=== PATIENT | male | born 1985 | race Caucasian/White ===

== ENCOUNTER 2020-03-27 20:11 | Emergency (ER) | payer MEDICAID, SELFPAY ==
[2020-03-27 20:20] VITALS: BP 145/93; PULSE 81; RESP 16; TEMP 36.7; O2SAT 100; BMI 25.7
--- NOTE | 2020-03-27 20:42 | HMH.EDEYEP ---
ED Disposition Clinical Impression: Eye foreign body Qualifiers: Encounter type: initial encounter Laterality: right Qualified Code(s): T15.91XA - Foreign body on external eye, part unspecified, right eye, initial encounter Disposition: Home, Self-Care Condition on Discharge: Good Instructions: DI for Eye Pain Additional Instructions: use ontiment as directed and call [facility] - [phone] in am Referrals: PCP,No [Primary Care Provider] - - Critical Care Critical Care Time: No Attestation: On 03/27/20, the high probability of a clinically significant, sudden or life threatening deterioration of the following system(s) required my full and direct attention, intervention and personal management. The time I documented below is in addition to time spent performing reported procedures but includes the following listed in this critical care notation. Medical Decision Making - Medical Records Medical records reviewed: Yes: I reviewed the patient's medical records. - Abdelrahman Inquiry Pt receiving controlled substance: No Vital Signs: 03/27/20 20:20 Temperature 98.1 F Temperature Source Oral Pulse Rate [Right] 81 Respiratory Rate 16 Blood Pressure [Right Arm] 145/93 H Blood Pressure Mean [Right Arm] 110 Blood Pressure Source [Right Arm] Automatic Cuff Blood Pressure Position [Right Arm] Sitting 02 Sat by Pulse Oximetry 100 Oxygen Delivery Method Room Air - Lab Data Lab results reviewed: Yes: I reviewed the patient's lab results. Eye Problem HPI - General Chief complaint: Eye Problems Stated complaint: object in L eye Time Seen by Provider: 03/27/20 20:30 Mode of Arrival: Ambulatory Source of Information: Patient, Medical Record Limitations: No Limitations Description of Symptoms (Recalled from ER Triage Doc. by RN): pt states about two hours ago his right eye became irritatted. he believes there is saw dust in it. - History of Present Illness HPI Narrative: possible fb rt eye - MD chief complaint: foreign body Onset (ago): hour(s) Duration: constant Location: right eye Eye Symptoms: foreign body sensation Place: home Severity: moderate Treatments Prior to Arrival: none - Related Data Patient tetanus UTD: No H History - Hepatitis A Screen Drug use history?: Yes High risk sexual behaviors?: No History of sexually transmitted infection?: No Currently employed?: No Childcare worker?: No Do you have indoor plumbing?: Yes Do you have electricity?: Yes Attestation statement:: This patient has been screened for Hepatitis A risk factors. I have reviewed the patient's past medical history: Yes ROS Obtained: Yes All systems reviewed & no additional complaints - Constitutional Constitutional: Denies fever(s) - Eyes Eyes: Reports as per HPI, Denies change in vision, Reports sensitivity to light - Cardiovascular Cardiovascular: Denies chest pain - Respiratory Respiratory: No pain with cough - Gastrointestinal Gastrointestingal: Denies: dysphagia - Genitourinary Male Genitourinary: Denies hematuria - Musculoskeletal Musculoskeletal: Denies joint swelling - Integumentary/Breasts Skin/Breast: Denies rash - Neurologic Neurologic: Denies seizure-like activity Physical Exam - General General appearance: alert, in no apparent distress - Head Head exam: normocephalic - Eye Eye exam: Present: PERRL, EOMI, other (neg fb seen and neg fluro stain ). Absent: scleral icterus - ENT ENT exam: Present: mucous membranes moist - Neck Neck exam: Present: trachea midline - Respiratory Respiratory exam: Absent: respiratory distress - Cardiovascular Cardiovascular exam: Present: regular rate - Abdominal Exam Abdominal exam: Present: soft - Extremities Exam Extremities exam: Present: full ROM - Neurological Exam Neurological exam: Present: alert, oriented X3, CN II-XII intact - Psychiatric Psychiatric exam: Present: normal affect - Skin Skin
[2020-03-27 21:03] VITALS: BP 158/79; PULSE 89; RESP 20; TEMP 36.8
== END 2020-03-27 21:06 | disposition home or self-care (01) ==
PROVIDERS: Emergency Provider Emergency Medicine
DX: T15.91XA Foreign body on external eye, part unspecified, right eye, initial encounter (principal); W45.8XXA Other foreign body or object entering through skin, initial encounter; Y92.9 Unspecified place or not applicable; Z23 Encounter for immunization
CPT/HCPCS: 90715; 99281

== ENCOUNTER → 2021-03-29 10:01 | Outpatient (CLI) | payer MEDICAID, SELFPAY | PROVIDERS: Visit Provider Nurse Practitioner | DX: Z20.822 Contact with and (suspected) exposure to COVID-19 (principal) | CPT/HCPCS: C9803; U0003; U0005 ==

== ENCOUNTER 2021-04-02 10:33 | Emergency (ER) | payer MEDICAID, SELFPAY ==
[2021-04-02 11:45] VITALS: BP 127/81; PULSE 72; RESP 19; TEMP 36.6; O2SAT 99; BMI 23.3
--- NOTE | 2021-04-02 12:24 | HMH.EDUTC ---
[facility] Dis[place] Clinical Impression: Sinusitis Qualifiers: Sinusitis location: unspecified location Chronicity: unspecified Qualified Code(s): J32.9 - Chronic sinusitis, unspecified Disposition: Home, Self-Care Condition on Discharge: Good Instructions: Sinusitis, Sinus Headache, DI for Sinusitis Additional Instructions: *Monitor Temp, Over the counter Motrin or Tylenol as directed/as needed Tylenol every 4 hours and Motrin every 6 hours (as long as your family doctor has told you that you can take it) for fever or pain. and straight to ER if unable to lower temp less than 101.0 after medication given *Warm salt water gargles may help to soothe the throat *Throat Lozenges *Warm fluids like tea with honey may help to soothe the throat *Sleep elevated *Humidifier/Vaporizer *Take antibiotics as prescribed Start Oral steriods tomorrow Follow up IMMEDIATELY for new or worsening symptoms or no Noticeable improvement over the next 48-72 hours. 911 for difficulty breathing or swallowing Prescriptions: Benzonatate [Benzonatate 100mg cap] 100 mg PO Q8HP PRN #15 cap PRN Reason: Cough Transmission Status: Received by [facility] methylPREDNISolone [Medrol 4mg tab] 4 mg PO DIRECTED #21 tab Transmission Status: Received by [facility] Azithromycin [Z-Elfego 250mg Tab] 250 mg PO DIRECTED #6 tab Transmission Status: Received by [facility] Referrals: Provider,Referral, MD [Primary Care Provider] - As needed Time of Disposition: 12:35 Medical Decision Making - Abdelrahman Inquiry Pt receiving controlled substance: No Abdelrahman was queried for this patient: No Vital Signs: 04/02/21 11:45 04/02/21 12:44 Temperature 97.8 F 97.8 F Temperature Source Oral Pulse Rate 72 Pulse Rate [Right Brachial] 72 Respiratory Rate 19 19 Blood Pressure 127/81 Blood Pressure [Right Arm] 127/81 Blood Pressure Mean [Right Arm] 96 Blood Pressure Source [Right Arm] Automatic Cuff Blood Pressure Position [Right Arm] Sitting 02 Sat by Pulse Oximetry 99 Oxygen Delivery Method Room Air Orders (Tests/Meds): ED MEDICATIONS Discontinued Medications Generic Name Dose Route Start Last Admin Trade Name Freq PRN Reason Stop Dose Admin Ketorolac Tromethamine 60 mg 04/02/21 12:30 04/02/21 12:43 Ketorolac 60mg/2ml Vial IM 04/02/21 12:31 60 mg ONCE ONE Administration Methylprednisolone Sodium Succinate 125 mg 04/02/21 12:30 04/02/21 12:43 Methylprednisolone Sod Succ 125mg Vial IM 04/02/21 12:31 125 mg ONCE ONE Administration Medical Decision Narrative: Patient states that he has taken SoluMedrol and Toradol in the past [facility] HPI - General Stated complaint: cough, congestion, h/a Time Seen by Provider: 04/02/21 12:24 Mode of Arrival: Ambulatory Source of Information: Patient Limitations: No Limitations Description of Symptoms (Recalled from Triage Doc. by RN): PATIENT C/O COUGH, RUNNY NOSE, HEADACHE X 1 WEEK. REPORTS HE WAS TESTED FOR COVID ON FRIDAY AND WAS NEGATIVE THEN HEENT Symptoms (Recalled from RN notes): Yes Resp Symptoms (Recalled from RN notes): Yes Skin Symptoms (Recalled from RN notes): No MS Symptoms (Recalled from RN notes): No Functional Status (Recalled from RN notes): WNL - History of Present Illness Provider Complaint: Patient states that he has been sick for over a week with sinus congestion and pressure States that it has continued to get worse and he was tested for COVID and it was negative States that today he was having a headache and he was still feeling bad today he came in - Related Data Previous Rx's Medication Instructions Recorded Azithromycin [Z-Elfego 250mg Tab] 250 mg PO DIRECTED #6 tab 04/02/21 Benzonatate [Benzonatate 100mg 100 mg PO Q8HP PRN #15 cap 04/02/21 cap] methylPREDNISolone [Medrol 4mg 4 mg PO DIRECTED #21 tab 04/02/21 tab] Allergies Allergy/AdvReac Type Severity Reaction Status Date / Time
[2021-04-02 12:44] VITALS: BP 127/81; PULSE 72; RESP 19; TEMP 36.6; O2SAT 99
== END 2021-04-02 12:57 | disposition home or self-care (01) ==
PROVIDERS: Emergency Provider Nurse Practitioner
DX: J32.9 Chronic sinusitis, unspecified (principal); F17.210 Nicotine dependence, cigarettes, uncomplicated
CPT/HCPCS: 96372; 99202; G0463

== ENCOUNTER → 2021-11-07 10:29 | Outpatient (CLI) | payer MEDICAID, SELFPAY ==
[2021-11-07 13:08] LABS: Basophils # 0.1 K/mm3 (0-0.2); Basophils % 0.7 % (0.1-2.0); Eosinophils # 0.2 K/mm3 (0.0-0.4); Eosinophils % 1.8 % (0.1-12.0); Hematocrit 45.9 % (42.0-52.0); Hemoglobin 14.5 g/dL (14.1-18.0); Lymphocytes # 2.7 K/mm3 (0.7-4.5); Lymphocytes % 26.9 % (10-50); Mean Corpuscular HGB Conc 31.6 g/dL (31.8-35.4); Mean Corpuscular Volume 91.7 fl (80-94); Mean Platelet Volume 9.4 fl (7.4-10.4); Monocytes # 0.4 K/mm3 (0.1-1.0); Monocytes % 4.3 % (1.7-9.3); Neutrophils # 6.8 K/mm3 (1.8-7.8); Neutrophils % 66.4 % (37.0-80.0); Platelet Count 235 K/mm3 (142-424); Red Blood Count 5.01 M/mm3 (4.60-6.20); Red Cell Distribution Width 12.3 % (11.5-17.5); White Blood Count 10.2 K/mm3 (4.8-10.8)
[2021-11-07 13:43] LABS: Alanine Aminotransferase 52 U/L (12-78); Albumin Level 4.3 g/dl (3.5-5.0); Alkaline Phosphatase 96 U/L (38-126); Anion Gap 11.8 mEq/L (5-15); Aspartate Amino Transferase 40 U/L (17-59); Blood Urea Nitrogen 13 mg/dl (9-20); Calcium 9.3 mg/dl (8.4-10.2); Carbon Dioxide 26 mmol/L (22.0-30.0); Chloride 106 mmol/L (98-107); Estimated Glomerular Filt Rate 128 ml/min (>60); GFR (African American) 154 ML/MIN (>60); Glucose 74 mg/dl (74-100); Potassium 4.8 mmoL/L (3.5-5.1); Sodium 139 mmol/L (136-145); Total Protein,Serum 6.7 g/dl (6.3-8.2)
[2021-11-07 13:44] LABS: Bilirubin,Total < 0.1 mg/dl (0.2-1.3)
[2021-11-07 14:30] LABS: Bilirubin,Direct 0.3 mg/dl (0.0-0.4)
[2021-11-08 07:13] LABS: HIV Screen 4th Generation wRfx Non Reactive (Non Reactive)
[2021-11-16 22:28] LABS: Hep A Ab, IgM Negative; Hepatitis B Surface Antigen Negative; Hepatitis C Antibody >11.0
== END ==
PROVIDERS: Visit Provider Family Medicine Addiction Medicine
DX: F11.20 Opioid dependence, uncomplicated (principal); R94.5 Abnormal results of liver function studies; Z11.4 Encounter for screening for human immunodeficiency virus [HIV]
CPT/HCPCS: 36415; 80048; 80074; 80076; 85025; 86703; G0432

== ENCOUNTER 2021-12-10 10:58 | Emergency (ER) | payer MEDICAID, SELFPAY ==
[2021-12-10 13:00] VITALS: BP 116/61; PULSE 63; RESP 18; TEMP 36.6; O2SAT 97; BMI 22.1
--- NOTE | 2021-12-10 13:24 | EXP.UTC ---
Discharge Plan Disposition Patient Disposition: Home, Self-Care Condition: Good Prescriptions Prescriptions: New ondansetron 4 mg tablet,disintegrating 4 mg PO Q8H PRN (Reason: nausea and vomiting) 4 Days Qty: 12 0RF Referrals Follow up/Referrals: Provider,Referral, MD [Primary Care Provider] - See instructions Activity Restrictions/Add. Instructions Additional Instructions/Restrictions: Drink extra fluids with and between meals. If you have difficulty drinking, try very small amounts of water or suck on ice chips. ? Avoid fruit juices, as these do not replace minerals and can actually increase diarrhea. ? Children and adults can use sports drinks to replenish electrolytes. Younger children and infants should use products formulated for children, like oral rehydration solutions. ? Eat food in small amounts and let your stomach recover. ? Get lots of rest. You may feel tired or weak. ? No greasy or fried foods for the next 24-48 hours BRAT diet Bananas Rice Apples and [address] ? Make sure to drink plenty of liquids ? Return if needed ? Straight to ER if any life threatening symptoms ? Zofran as prescribed ? Follow up with family doctor in the next 48-72 hours if no improvement or any worsening of symptoms Clinical Impressions Clinical Impression: Nausea & vomiting Stand Alone Forms Stand Alone Forms: Work/School Release Discharge ED Provider: Sierra Solorio [facility] General Stated complaint: Nausea Mode of Arrival: Ambulatory Source of Information: Patient Limitations: No Limitations Time Seen by Provider: 12/10/21 13:24 Description of Symptoms (Recalled from Triage Doc. by RN): PATIENT C/O NAUSEA AND VOMITING X 2 DAYS. NEEDING A WORK NOTE HEENT Symptoms (Recalled from RN notes): No Resp Symptoms (Recalled from RN notes): No Skin Symptoms (Recalled from RN notes): No MS Symptoms (Recalled from RN notes): No Functional Status (Recalled from RN notes): WNL History of Present Illness Provider Complaint: Patient state that he has been having N/V for the last couple of days States that he has been drinking ok but not keeping much down when he eats States that today he was still having nausea and vomiting this morning so he came in to get checked and get something for the Nausea Related Data Previous Rx's Medication Instructions Recorded ondansetron 4 mg disintegrating 4 mg PO Q8H PRN nausea and 12/10/21 tablet vomiting 4 days #12 tabs Allergies Allergy/AdvReac Type Severity Reaction Status Date / Time methylphenidate Allergy Verified 03/27/20 20:44 [From Ritalin] Worker's Comp Is this a Worker's Comp case?: No [facility] Social History (Updated 12/10/21 @ 13:08 by Belkys Peraza RN) Smoking Status: Current every day smoker alcohol intake: never current occupational status: employed Travel in the last 8 weeks: None ROS Obtained: Yes All systems reviewed & no additional complaints except as documented and Yes Systems reviewed as appropriate & no additional complaints except as documented ENT Ears, Nose, Mouth, and Throat: Reports system reviewed and no additional complaints, except as documented and Reports as per HPI Cardiovascular Cardiovascular: Reports system reviewed and no additional complaints, except as documented and Reports as per HPI Respiratory Respiratory: Reports system reviewed and no additional complaints, except as documented and Reports as per HPI Gastrointestinal Gastrointestingal: Reports system reviewed and no additional complaints, except as documented, nausea and vomiting; Denies heartburn Genitourinary Male Genitourinary: Reports system reviewed and no additional complaints, except as documented and Reports as per HPI Musculoskeletal Musculoskeletal: Reports system reviewed and no additional complaints, except as documented and Reports as per HPI Physical Exam General General appe
[2021-12-10 13:41] VITALS: BP 116/61; PULSE 63; RESP 18; TEMP 36.6; O2SAT 97
== END 2021-12-10 13:44 | disposition home or self-care (01) ==
PROVIDERS: Emergency Provider Nurse Practitioner
DX: R11.2 Nausea with vomiting, unspecified (principal)
CPT/HCPCS: 99212; G0463

== ENCOUNTER 2022-02-13 19:11 | Emergency (ER) | payer MEDICAID, SELFPAY ==
[2022-02-13 19:13] VITALS: BP 117/66; PULSE 62; RESP 16; TEMP 36.7; O2SAT 97; BMI 23.7
--- NOTE | 2022-02-13 20:42 | CT_ITS ---
PROCEDURE INFORMATION: Exam: CT Abdomen And Pelvis With Contrast Exam date and time: 02/13/2022 8:43 PM Age: 36 years old Clinical indication: Abdominal pain; Localized; Other: Right groin; Additional info: Hernia right upper groin TECHNIQUE: Imaging protocol: Computed tomography of the abdomen and pelvis with contrast. Radiation optimization: All CT scans at this facility use at least one of these dose optimization techniques: automated exposure control; mA and/or kV adjustment per patient size (includes targeted exams where dose is matched to clinical indication); or iterative reconstruction. Contrast material: ISOVUE; Contrast volume: 75 ml; Contrast route: IV; COMPARISON: No relevant prior studies available. FINDINGS: Liver: Normal configuration. Homogeneous parenchyma. Gallbladder and bile ducts: Postprandial gallbladder is contracted. Pancreas: Normal. No ductal dilation. Spleen: Normal. No splenomegaly. Adrenal glands: Normal configuration. Kidneys and ureters: Kidneys enhance symmetrically and demonstrate no evidence of mass, calculus, obstruction, or inflammation. Stomach and bowel: Unremarkable. No obstruction. No mural thickening. Appendix: Normal appendix is in a retrocecal position. Intraperitoneal space: No free air. No significant fluid collection. Vasculature: Normal caliber arterial structures. Lymph nodes: No enlarged lymph nodes. Urinary bladder: Unremarkable as visualized. Reproductive: Physiologic appearance for age. Bones/joints: No fracture or destructive lesion. Soft tissues: Intact abdominal wall. In particular, there is no evidence of hernia. IMPRESSION: No acute abnormality identified to explain patient's inguinal pain. In particular, there is no evidence of hernia or urolithiasis. Normal appendix is confirmed.
[2022-02-13 20:45] LABS: Microscopic, Urine URINE MICROSCOPIC (MICROSCOPIC)
[2022-02-13 20:56] LABS: Appearance,Urine CLOUDY (Clear); Bilirubin,Urine Negative (Negative); Blood, Urine Negative (Negative); Color,Urine YELLOW (Yellow); Glucose,Urine (UA) Negative (Negative); Ketones,Urine Negative (Negative); Leukocyte Esterase,Urine Negative (Negative); Nitrate,Urine Negative (Negative); Protein,Urine Negative (Negative)
[2022-02-13 21:00] VITALS: BP 124/72; PULSE 60; O2SAT 99
[2022-02-13 21:00] LABS: Bacteria,Urine Trace /lpf
[2022-02-13 21:00] LABS: Chloride 100 mmol/L (98-107); Potassium 3.8 mmoL/L (3.5-5.1); Sodium 139 mmol/L (136-145)
[2022-02-13 21:02] LABS: Basophils # 0.1 K/mm3 (0-0.2); Basophils % 1.1 % (0.1-2.0); Eosinophils # 0.2 K/mm3 (0.0-0.4); Eosinophils % 2.3 % (0.1-12.0); Hematocrit 41.8 % (42.0-52.0); Hemoglobin 14.3 g/dL (14.1-18.0); Lymphocytes % 39.4 % (10-50); Mean Corpuscular HGB Conc 34.1 g/dL (31.8-35.4); Mean Corpuscular Hemoglobin 29.9 pg (27.0-31.2); Mean Corpuscular Volume 87.7 fl (80-94); Mean Platelet Volume 8.4 fl (7.4-10.4); Monocytes # 0.5 K/mm3 (0.1-1.0); Monocytes % 4.8 % (1.7-9.3); Neutrophils # 5.4 K/mm3 (1.8-7.8); Neutrophils % 52.4 % (37.0-80.0); Platelet Count 237 K/mm3 (142-424); Red Blood Count 4.77 M/mm3 (4.60-6.20); Red Cell Distribution Width 12.2 % (11.5-17.5); White Blood Count 10.2 K/mm3 (4.8-10.8)
[2022-02-13 21:03] LABS: Alanine Aminotransferase 48 U/L (12-78); Albumin Level 4.4 g/dl (3.5-5.0); Albumin/Globulin Ratio 1.8 (1.1-1.8); Alkaline Phosphatase 90 U/L (38-126); Anion Gap 12.8 mEq/L (5-15); Aspartate Amino Transferase 42 U/L (17-59); Bilirubin,Total 0.3 mg/dl (0.2-1.3); Blood Urea Nitrogen 16 mg/dl (9-20); Calcium 9.5 mg/dl (8.4-10.2); Carbon Dioxide 30 mmol/L (22.0-30.0); Creatinine Clearance Estimated 168 mL/min (50-200); Estimated Glomerular Filt Rate 128 ml/min (>60); GFR (African American) 154 ML/MIN (>60); Globulin 2.5 g/dL (1.3-3.2); Glucose 93 mg/dl (74-100); Total Protein,Serum 6.9 g/dl (6.3-8.2)
--- NOTE | 2022-02-13 21:12 | HMH.EDABDPAI ---
Discharge Plan Disposition Patient Disposition: Home, Self-Care Chief Complaint: Abdominal Pain Prescriptions Prescriptions: No Action ondansetron 4 mg tablet,disintegrating 4 mg PO Q8H PRN (Reason: nausea and vomiting) 4 Days Qty: 12 0RF Referrals Follow up/Referrals: Provider,MD Charity [Primary Care Provider] - See instructions Robert Jules MD [Staff Physician] - See instructions Mina Stanley MD [Staff Physician] - See instructions Clinical Impressions Clinical Impression: Inguinal pain Instructions Patient Instructions: DI for Groin Strain Discharge ED Provider: Lito Ventura Abdominal Pain HPI General Chief Complaint: Abdominal Pain Stated Complaint: PAIN IN ADM Time Seen by Provider: 02/13/22 21:12 Mode of Arrival: Ambulatory Source of Information: Patient and Medical Record Limitations: No Limitations Description of Symptoms (Recalled from ER Triage Doc. by RN): pt has a hx of hernias an repairs. 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 the early pt has pain in the right upper groin area History of Present Illness HPI narrative: lifting about 1 week ago with pain rt inguinal area with hx of prev hernia repair complaint: abdominal pain Onset (ago): day(s) Consistency: intermittent Location: RLQ Severity: moderate Associated symptoms: denies other symptoms Related Data Previous Rx's Medication Instructions Recorded ondansetron 4 mg disintegrating 4 mg PO Q8H PRN nausea and 12/10/21 tablet vomiting 4 days #12 tabs Allergies Allergy/AdvReac Type Severity Reaction Status Date / Time methylphenidate Allergy Verified 03/27/20 20:44 [From Ritalin] [facility] Social History (Updated 12/10/21 @ 13:08 by Belkys Peraza RN) Smoking Status: Current every day smoker alcohol intake: never current occupational status: employed Travel in the last 8 weeks: None ROS Obtained: Yes All systems reviewed & no additional complaints except as documented Physical Exam General General appearance: alert Head Head exam: normocephalic Eye Eye exam: Present PERRL and EOMI ENT ENT exam: Present mucous membranes moist Neck Neck exam: Present trachea midline Respiratory Respiratory exam: Absent respiratory distress Cardiovascular Cardiovascular exam: Present regular rate Abdominal Exam Abdominal exam: Present soft, tenderness and hernia Abdominal tenderness: Present RLQ and moderate exam: Absent scrotal swelling Extremities Exam Extremities exam: Present normal inspection Neurological Exam Neurological exam: Present alert, oriented X3 and CN II-XII intact Psychiatric Psychiatric exam: Present normal affect Skin Skin exam: Absent rash Lymphatic Lymphatic Findings: no adenopathy Medical Decision Making Medical Records Medical records reviewed: Yes I reviewed the patient's medical records. Abdelrahman Inquiry Pt receiving controlled substance: No Vital Signs: 02/13/22 19:13 Temperature 98.1 F Temperature Source Oral Pulse Rate [Left] 62 Respiratory Rate 16 Blood Pressure [Right Arm] 117/66 Blood Pressure Mean [Right Arm] 83 02 Sat by Pulse Oximetry 97 Oxygen Delivery Method Room Air Lab Data Lab results reviewed: Yes I reviewed the patient's lab results. Lab Results 02/13/22 20:00: Urine Color Yellow, Urine Appearance Cloudy, Urine pH 7.0, Ur Specific [place] 1.020, Urine Protein Negative, Urine Glucose (UA) Negative, Urine Ketones Negative, Urine Blood Negative, Urine Nitrate Negative, Urine Bilirubin Negative, Urine Urobilinogen 1.0, Ur Leukocyte Esterase Negative, Urine RBC None, Urine WBC 3-5, Ur Squamous Epith Cells 3-5, Urine Bacteria Trace 02/13/22 20:24: WBC 10.2, RBC 4.77, Hgb 14.3, Hct 41.8 L, MCV 87.7, MCH 29.9, MCHC 34.1, RDW 12.2, Plt Count 237, MPV 8.4, Neut % (Auto) 52.4, Lymph % (Auto) 39.4, [place] % (Auto) 4.8, Eos % (Auto) 2.3, Baso % (Auto) 1.1, Keith
--- NOTE | 2022-02-13 21:39 | PC.NURSE ---
Dr. Ventura at speaking with pt.
[2022-02-13 21:43] VITALS: BP 119/75; PULSE 61; RESP 16; TEMP 36.7; O2SAT 97
== END 2022-02-13 21:44 | disposition home or self-care (01) ==
PROVIDERS: Emergency Provider Emergency Medicine
DX: R10.31 Right lower quadrant pain (principal); R11.2 Nausea with vomiting, unspecified; Z79.899 Other long term (current) drug therapy; Z88.8 Allergy status to other drugs, medicaments and biological substances
CPT/HCPCS: 74177; 80053; 81001; 85025; 99285; Q9967

== ENCOUNTER → 2022-06-20 14:36 | Outpatient (CLI) | payer MEDICAID, SELFPAY ==
--- NOTE | 2022-06-20 14:40 | XR_ITS ---
FINAL REPORT CLINICAL HISTORY: finger injury injury to 3rd digit FINDINGS: LEFT FINGER 3 views of the left 3rd digit were obtained. There is no acute fracture or dislocation. The joint spaces are intact. There is no soft tissue abnormality. IMPRESSION: No acute bony abnormality. Reviewed, Interpreted and Dictated by Robert García III, MD Transcribed by Amanda Murray Authenticated and . [facility]
--- NOTE | 2022-06-20 14:40 | XR_ITS ---
FINAL REPORT CLINICAL HISTORY: hand injury, swelling FINDINGS: LEFT HAND Three views demonstrate no acute fracture. There is no dislocation. The visualized joint spaces are normally aligned. The joint spaces are preserved. There is a 4 mm foreign body along the medial aspect of the hand. IMPRESSION: No acute bony abnormality. Reviewed, Interpreted and Dictated by Robert García III, MD Transcribed by Amanda Murray Authenticated and . [facility]
== END ==
PROVIDERS: Visit Provider Student in an Organized Health Care Education/Training Program
DX: S69.92XA Unspecified injury of left wrist, hand and finger(s), initial encounter (principal); M79.642 Pain in left hand
CPT/HCPCS: 73130; 73140

== ENCOUNTER 2022-10-23 20:42 | Emergency (ER) | payer MEDICAID, SELFPAY ==
[2022-10-23 20:43] VITALS: BP 118/65; PULSE 68; RESP 16; TEMP 36.6; O2SAT 99; BMI 19.8
--- NOTE | 2022-10-23 21:09 | HMH.EDEYEP ---
Discharge Plan Disposition Patient Disposition: Home, Self-Care Chief Complaint: Eye Problems Prescriptions Prescriptions: No Action buprenorphine-naloxone [Suboxone] 4-1 mg film 1 film buccal Q24H Rx Instructions: place 1 strip/tab under (each) side of tongue cephalexin 500 mg capsule 500 mg PO QID Qty: 20 0RF sulfamethoxazole-trimethoprim 800-160 mg tablet 1 tab PO BID Qty: 14 0RF mupirocin 2 % ointment 1 applic topical BID Qty: 15 0RF Referrals Follow up/Referrals: Provider,MD Charity [Primary Care Provider] - See instructions Clinical Impressions Clinical Impression: Ultraviolet conjunctivitis Discharge ED Provider: Rodolfo Guzmán Eye Problem HPI General Chief complaint: Eye Problems Stated complaint: BL eyes burning Time Seen by Provider: 10/23/22 20:48 Mode of Arrival: Wheelchair Source of Information: Patient Limitations: No Limitations Description of Symptoms (Recalled from ER Triage Doc. 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 pt c/o bliateral eye burning that started this eveing. pt denies any vision changes. History of Present Illness HPI Narrative: 37-year-old white male presents with bilateral pain. 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 He has not been doing any grinding no dust no sawdust in the that he just welding. Patient is in a Suboxone clinic and has allergy to Ritalin. Related Data Home Medications Medication Instructions Recorded Confirmed buprenorphine 4 mg-naloxone 1 mg 1 film buccal Q24H 06/20/22 06/21/22 sublingual film (Suboxone) Previous Rx's Medication Instructions Recorded cephalexin 500 mg capsule 500 mg PO QID #20 caps 06/20/22 mupirocin 2 % topical ointment 1 applic topical BID #15 grams 06/20/22 sulfamethoxazole 800 1 tab PO BID #14 tabs 06/20/22 mg-trimethoprim 160 mg tablet Allergies Allergy/AdvReac Type Severity Reaction Status Date / Time methylphenidate Allergy Verified 06/21/22 12:19 [From Ritalin] [facility] Disclaimer: The information contained in this section may have been updated after the patient was seen, as this information can be updated by other users. Social History Smoking Status: Current every day smoker alcohol intake: never substance use type: former substance user current occupational status: employed Travel in the last 8 weeks: None ROS Obtained: Yes Systems reviewed as appropriate & no additional complaints except as documented Physical Exam General General appearance: alert and in distress (Patient has his eyes tightly closed and these have to be pried open to get anesthetic drops in the eyes.) Eye Eye exam: Present conjunctival redness and other Expanded Eye Exam Eyelids: bilateral: erythema Pupils: Bilateral: regular, round and reactive Sclera/Conjunctival: bilateral: injection Posterior chamber: bilateral: deferred Comment: The patient's bilateral eye pain and accompanying blepharospasm has prevented visual acuity. He never got to the point where he could keep his eyes open without them being pried open. Even with multiple antibiotic drops he continues to keep his eyes closed. Neck Neck exam: Present normal inspection Respiratory Respiratory exam: Present normal lung sounds bilaterally; Absent respiratory distress Cardiovascular Cardiovascular exam: Present regular rate and normal rhythm Abdominal Exam Abdominal exam: Present soft; Absent tenderness Extremities Exam Extremities exam: Present normal inspection Neurological Exam Neurological exam: Present alert, oriented X3 and CN II-XII intact Medical Decision Making Medical Records MR Comment: 37-year-old white male presents with severe bilateral eye pain. The right seems to be worse in the left he was anesthetized and fluorescein staining was performed after ir
--- NOTE | 2022-10-23 21:12 | PC.NURSE ---
Pt unable to open eyes long enough to complete visual acuity test. Dr dang
[2022-10-23 21:20] VITALS: BP 121/74; PULSE 71; RESP 16; TEMP 36.6; O2SAT 99
== END 2022-10-23 21:25 | disposition home or self-care (01) ==
PROVIDERS: Emergency Provider Emergency Medicine
DX: H16.139 Photokeratitis, unspecified eye (principal); F17.200 Nicotine dependence, unspecified, uncomplicated
CPT/HCPCS: 99283; 99284

== ENCOUNTER 2022-12-06 11:55 | Emergency (ER) | payer MEDICAID, SELFPAY ==
[2022-12-06 11:56] VITALS: BP 111/76; PULSE 93; RESP 16; TEMP 36.6; O2SAT 98; BMI 21.7
--- NOTE | 2022-12-06 12:15 | HMH.EDGENADL ---
Discharge Plan Disposition Patient Disposition: Home, Self-Care Prescriptions Prescriptions: New ondansetron 4 mg tablet,disintegrating 4 mg PO Q6H PRN (Reason: nausea and vomiting) 5 Days Qty: 20 0RF No Action buprenorphine-naloxone [Suboxone] 4-1 mg film 1 film buccal Q24H Rx Instructions: place 1 strip/tab under (each) side of tongue cephalexin 500 mg capsule 500 mg PO QID Qty: 20 0RF sulfamethoxazole-trimethoprim 800-160 mg tablet 1 tab PO BID Qty: 14 0RF mupirocin 2 % ointment 1 applic topical BID Qty: 15 0RF Activity Restrictions/Add. Instructions Additional Instructions/Restrictions: Return to the emergency department with any inability to keep fluids down or significant worsening of your abdominal pain. Clinical Impressions Clinical Impression: Nausea & vomiting Instructions Patient Instructions: DI for Acute Abdominal Pain Discharge ED Provider: Nomi Stephens General Adult HPI General Chief complaint: Abdominal Pain Stated complaint: stomach pain,vomiting,headache Time Seen by Provider: 12/06/22 12:08 History of Present Illness HPI narrative: Patient is a 37-year-old male here with 4 days of nausea vomiting. This has been nonbloody nonbilious no diarrhea associated with it. No significant abdominal tenderness but does have some abdominal crampy symptoms on the left side. No constipation. Is having normal bowel movements. No fevers or chills. No sick contacts that he is aware of. Denies any drug use or significant alcohol or tobacco use. Denies any other significant medical problems. States he tried some [id number] medications and has been able to get his nausea under control at home. Related Data Home Medications Medication Instructions Recorded Confirmed buprenorphine 4 mg-naloxone 1 mg 1 film buccal Q24H 06/20/22 06/21/22 sublingual film (Suboxone) Previous Rx's Medication Instructions Recorded cephalexin 500 mg capsule 500 mg PO QID #20 caps 06/20/22 mupirocin 2 % topical ointment 1 applic topical BID #15 grams 06/20/22 sulfamethoxazole 800 1 tab PO BID #14 tabs 06/20/22 mg-trimethoprim 160 mg tablet ondansetron 4 mg disintegrating 4 mg PO Q6H PRN nausea and 12/06/22 tablet vomiting 5 days #20 tabs Allergies Allergy/AdvReac Type Severity Reaction Status Date / Time methylphenidate Allergy Verified 06/21/22 12:19 [From Ritalin] [facility] Disclaimer: The information contained in this section may have been updated after the patient was seen, as this information can be updated by other users. Social History Smoking Status: Current every day smoker alcohol intake: never substance use type: former substance user current occupational status: employed Travel in the last 8 weeks: None ROS Obtained: Yes All systems reviewed & no additional complaints except as documented Physical Exam General General appearance: alert Respiratory Respiratory exam: Present normal lung sounds bilaterally; Absent respiratory distress Cardiovascular Cardiovascular exam: Present regular rate; Absent tachycardia Abdominal Exam Abdominal exam: Present soft; Absent distention, tenderness, guarding or rebound Neurological Exam Neurological exam: Present alert and oriented X3 Medical Decision Making Abdelrahman Inquiry Pt receiving controlled substance: No Vital Signs: 12/06/22 11:56 Temperature 97.9 F Temperature Source Oral Pulse Rate [Right] 93 H Respiratory Rate 16 Blood Pressure [Right Arm] 111/76 Blood Pressure Mean [Right Arm] 87 Blood Pressure Source [Right Arm] Automatic Cuff 02 Sat by Pulse Oximetry 98 Oxygen Delivery Method Room Air Lab Data Lab results reviewed: Yes I reviewed the patient's lab results. Lab Results 12/06/22 12:10: WBC 8.3, RBC 5.23, Hgb 15.2, Hct 45.9, MCV 87.8, MCH 29.0, MCHC 33.0, RDW 12.3, Plt Count 206, MPV 9.1, Neut % (Auto)
[2022-12-06 12:34] LABS: Basophils # 0.1 K/mm3 (0-0.2); Basophils % 0.8 % (0.1-2.0); Eosinophils # 0.3 K/mm3 (0.0-0.4); Hematocrit 45.9 % (42.0-52.0); Hemoglobin 15.2 g/dL (14.1-18.0); Lymphocytes # 2.7 K/mm3 (0.7-4.5); Lymphocytes % 32.1 % (10-50); Mean Corpuscular Volume 87.8 fl (80-94); Mean Platelet Volume 9.1 fl (7.4-10.4); Monocytes # 0.5 K/mm3 (0.1-1.0); Monocytes % 5.7 % (1.7-9.3); Neutrophils # 4.8 K/mm3 (1.8-7.8); Neutrophils % 58.4 % (37.0-80.0); Platelet Count 206 K/mm3 (142-424); Red Blood Count 5.23 M/mm3 (4.60-6.20); Red Cell Distribution Width 12.3 % (11.5-17.5); White Blood Count 8.3 K/mm3 (4.8-10.8)
[2022-12-06 12:44] LABS: Chloride 105 mmol/L (98-107); Potassium 4.5 mmoL/L (3.5-5.1); Sodium 140 mmol/L (136-145)
[2022-12-06 12:47] LABS: Alanine Aminotransferase 70 U/L (12-78); Albumin Level 4.2 g/dl (3.5-5.0); Albumin/Globulin Ratio 1.4 (1.1-1.8); Alkaline Phosphatase 96 U/L (38-126); Anion Gap 13.5 mEq/L (5-15); Aspartate Amino Transferase 47 U/L (17-59); Bilirubin,Total 0.3 mg/dl (0.2-1.3); Blood Urea Nitrogen 11 mg/dl (9-20); Calcium 9.4 mg/dl (8.4-10.2); Carbon Dioxide 26 mmol/L (22.0-30.0); Creatinine Clearance Estimated 173 mL/min (50-200); Estimated Glomerular Filt Rate 152 ml/min (>60); GFR (African American) 183 ML/MIN (>60); Glucose 80 mg/dl (74-100); Lipase 38 U/L (23-300); Total Protein,Serum 7.2 g/dl (6.3-8.2)
[2022-12-06 13:45] VITALS: BP 106/62; PULSE 55; RESP 17; TEMP 36.7; O2SAT 100
== END 2022-12-06 13:45 | disposition home or self-care (01) ==
PROVIDERS: Emergency Provider Student in an Organized Health Care Education/Training Program
DX: R11.2 Nausea with vomiting, unspecified (principal); F17.210 Nicotine dependence, cigarettes, uncomplicated
CPT/HCPCS: 80053; 83690; 85025; 96361; 96374; 99284; J2405

== ENCOUNTER 2023-06-08 11:15 | Emergency (ER) | payer MEDICAID, SELFPAY ==
[2023-06-08 11:19] VITALS: BP 145/95; PULSE 70; RESP 18; TEMP 36.6; O2SAT 98; BMI 21.7
--- NOTE | 2023-06-08 11:37 | ED_ITS ---
Discharge Plan Disposition Patient Disposition: Home, Self-Care Condition: Good Prescriptions Prescriptions: New sulfamethoxazole-trimethoprim [Bactrim DS] 800-160 mg tablet 1 tab PO BID 7 Days Qty: 14 0RF cephalexin 500 mg capsule 500 mg PO QID 7 Days Qty: 28 0RF No Action buprenorphine-naloxone [Suboxone] 4-1 mg film 1 film buccal Q24H Rx Instructions: place 1 strip/tab under (each) side of tongue cephalexin 500 mg capsule 500 mg PO QID Qty: 20 0RF sulfamethoxazole-trimethoprim 800-160 mg tablet 1 tab PO BID Qty: 14 0RF mupirocin 2 % ointment 1 applic topical BID Qty: 15 0RF ondansetron 4 mg tablet,disintegrating 4 mg PO Q6H PRN (Reason: nausea and vomiting) 5 Days Qty: 20 0RF Referrals Follow up/Referrals: Provider,Referral, MD [Primary Care Provider] - See instructions Activity Restrictions/Add. Instructions Additional Instructions/Restrictions: Take Bactrim and Keflex as prescribed and return for any new or worsening symptoms including but not limited to worsening redness despite taking antibiotics, redness tracking down the finger, fevers or any new concerns arise. Clinical Impressions Clinical Impression: Cellulitis of hand, Abscess of finger of left hand Instructions Patient Instructions: DI for Skin Abscess Discharge ED Provider: Kat Benson General Adult HPI General Chief complaint: Skin/Abscess/Foreign Body Stated complaint: AO splinter in left ring finger Time Seen by Provider: 06/08/23 11:18 Mode of Arrival: Ambulatory Source of Information: Patient Limitations: No Limitations Description of Symptoms (Recalled from ER Triage Doc. by RN): left hand ring finger History of Present Illness HPI narrative: Patient is a 37-year-old male with no significant past medical history presenting with left ring finger injury. Patient states around 2 weeks ago he thinks that there was a splinter or foreign body that got cut on his finger as he does work with some wood, for the past 4 days he has noticed some worsening redness and was concern for possible infection and therefore presented for further evaluation. He denies any fevers or chills, nausea or vomiting. Denies any other illness or injury but does note that it seemed to drain some pus this morning. Related Data Home Medications Medication Instructions Recorded Confirmed buprenorphine 4 mg-naloxone 1 mg 1 film buccal Q24H 06/20/22 06/21/22 sublingual film (Suboxone) Previous Rx's Medication Instructions Recorded cephalexin 500 mg capsule 500 mg PO QID #20 caps 06/20/22 mupirocin 2 % topical ointment 1 applic topical BID #15 grams 06/20/22 sulfamethoxazole 800 1 tab PO BID #14 tabs 06/20/22 mg-trimethoprim 160 mg tablet ondansetron 4 mg disintegrating 4 mg PO Q6H PRN nausea and 12/06/22 tablet vomiting 5 days #20 tabs cephalexin 500 mg capsule 500 mg PO QID 7 days #28 caps 06/08/23 sulfamethoxazole 800 1 tab PO BID 7 days #14 tabs 06/08/23 mg-trimethoprim 160 mg tablet (Bactrim DS) Allergies Allergy/AdvReac Type Severity Reaction Status Date / Time methylphenidate Allergy Verified 06/21/22 12:19 [From Ritalin] [facility] Disclaimer: The information contained in this section may have been updated after the patient was seen, as this information can be updated by other users. Social History Smoking Status: Current every day smoker alcohol intake: never substance use type: former substance user current occupational status: employed Travel in the last 8 weeks: None ROS Obtained: Yes Systems reviewed as appropriate & no additional complaints except as documented Physical Exam General General appearance: alert and in no apparent distress Chest Chest inspection: Present normal inspection and symmetric chest wall rise Respiratory Respiratory exam: Absent respiratory distress or accessory muscle use Cardiovascular Cardiovascular exam: Present regular rate and normal rhythm Extremities Exam Extremities exam: Present other (Area of erythema over dorsal left ring finger over the distal phalanx with small area of eschar over the middle of the erythematous area, slight fluctuance, does not involve the nailbed, capillary refill less than 2 seconds and sensation intact distal extremity and able to range of motion without di) Neurological Exam Neurological exam: Present alert and oriented X3 Skin Skin exam: Present warm and dry Medical Decision Making Medical Records Medical records reviewed: Yes I reviewed the patient's medical records. Abdelrahman Inquiry Pt receiving controlled substance: No Vital Signs: 06/08/23 11:19 Temperature 97.9 F Temperature Source Oral Pulse Rate [Right Radial] 70 Respiratory Rate 18 Blood Pressure [Right Arm] 145/95 H Blood Pressure Mean [Right Arm] 111 02 Sat by Pulse Oximetry 98 Oxygen Delivery Method Room Air Medical Decision Narrative: Patient is a 37-year-old male with no significant past medical history presenting with concern for infection to dorsal aspect of left ring finger with injury 2 weeks ago and erythema noted over the past 4 days. He is notably up-to-date on tetanus within the past 5 years. He does have an area of erythema with an area of eschar over the middle aspect likely where he noted pus draining from the wound this morning, able to range of motion the finger without difficulty, neurovascularly intact capillary refill less than 2 seconds distal extremity. I did ultrasound of the finger at bedside using water back method and there is perhaps a small area of fluid that can be drained from the wound which was drained per procedural documentation. Discussed with patient prescribing Bactrim and Keflex for the wound to which patient is agreeable. Discussed return precautions to which she is also agreeable. Discharged in stable condition. Procedures Abscess I/D Site: hand (Dorsal left ring finger) Side (if applicable): left Technique: incised with #11 blade Amount of fluid expressed (mL): 0.5 Packing used?: none Complications: other (Patient tolerated the procedure well) Critical Care Critical Care Time Critical Care Time: No
[2023-06-08 11:52] VITALS: BP 135/81; PULSE 66; RESP 18; TEMP 36.6; O2SAT 98
== END 2023-06-08 11:52 | disposition home or self-care (01) ==
PROVIDERS: Emergency Provider Emergency Medicine
DX: L02.512 Cutaneous abscess of left hand (principal); L03.012 Cellulitis of left finger; S60.455 Superficial foreign body of left ring finger; W45.8XXS Other foreign body or object entering through skin, sequela
CPT/HCPCS: 10060; 99284

== ENCOUNTER 2023-10-10 09:59 | Emergency (ER) | payer MEDICAID, SELFPAY ==
[2023-10-10 10:00] VITALS: BP 140/110; PULSE 83; RESP 16; TEMP 36.8; O2SAT 98; BMI 22.4
[2023-10-10 10:05] VITALS: PULSE 76; O2SAT 97
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
[2023-10-10 10:29] VITALS: BP 116/77; PULSE 74; O2SAT 96
[2023-10-10] MEDS: ACETAMINOPHEN 500MG TAB 1000 MG PO (10:29)
[2023-10-10] MEDS: KETOROLAC 30MG/ML VIAL 15 MG IV (10:30)
[2023-10-10] MEDS: LACTATED RINGERS 1000ML 1,000 ML 999 ML IV (10:30)
[2023-10-10 10:34] LABS: Chloride 106 mmol/L (98-107); Potassium 4.1 mmoL/L (3.5-5.1); Sodium 141 mmol/L (136-145)
[2023-10-10 10:37] LABS: Alanine Aminotransferase 49 U/L (12-78); Albumin Level 4.7 g/dl (3.5-5.0); Albumin/Globulin Ratio 1.6 (1.1-1.8); Alkaline Phosphatase 89 U/L (38-126); Anion Gap 11.1 mEq/L (5-15); Aspartate Amino Transferase 39 U/L (17-59); Bilirubin,Total 0.4 mg/dl (0.2-1.3); Blood Urea Nitrogen 12 mg/dl (9-20); Carbon Dioxide 28 mmol/L (22.0-30.0); Creatinine Clearance Estimated 156 mL/min (50-200); Estimated Glomerular Filt Rate 126 ml/min (>60); GFR (African American) 153 ML/MIN (>60); Globulin 2.9 g/dL (1.3-3.2); Total Protein,Serum 7.6 g/dl (6.3-8.2)
[2023-10-10 10:38] LABS: Calcium 9.4 mg/dl (8.4-10.2); Glucose 97 mg/dl (74-100)
--- NOTE | 2023-10-10 10:40 | PC.NURSE ---
UA sent to lab
[2023-10-10 10:42] LABS: Microscopic, Urine URINE MICROSCOPIC (MICROSCOPIC)
[2023-10-10 11:11] LABS: Appearance,Urine CLEAR (Clear); Bilirubin,Urine Negative (Negative); Blood, Urine Negative (Negative); Color,Urine YELLOW (Yellow); Glucose,Urine (UA) Negative (Negative); Ketones,Urine Negative (Negative); Leukocyte Esterase,Urine Negative (Negative); Nitrate,Urine Negative (Negative); PH,Urine 6.5 (5.0-8.5); Protein,Urine Negative (Negative); Urobilinogen,Urine 0.2 EU/dl (0.2)
[2023-10-10 11:42] LABS: Basophils # 0.1 K/mm3 (0-0.2); Basophils % 0.6 % (0.1-2.0); Eosinophils # 0.2 K/mm3 (0.0-0.4); Eosinophils % 1.9 % (0.1-12.0); Hematocrit 47.6 % (42.0-52.0); Hemoglobin 16.2 g/dL (14.1-18.0); Lymphocytes # 2.5 K/mm3 (0.7-4.5); Lymphocytes % 27.5 % (10-50); Mean Corpuscular Hemoglobin 30.3 pg (27.0-31.2); Mean Corpuscular Volume 89.1 fl (80-94); Mean Platelet Volume 8.7 fl (7.4-10.4); Monocytes # 0.4 K/mm3 (0.1-1.0); Monocytes % 4.8 % (1.7-9.3); Neutrophils % 65.3 % (37.0-80.0); Platelet Count 184 K/mm3 (142-424); Red Blood Count 5.34 M/mm3 (4.60-6.20); Red Cell Distribution Width 12.9 % (11.5-17.5); White Blood Count 9.2 K/mm3 (4.8-10.8)
[2023-10-10 11:49] VITALS: BP 128/78; PULSE 84; RESP 18; TEMP 36.8; O2SAT 98
[2023-10-10 12:13] LABS: Bacteria,Urine Trace /lpf; Squamous Epithelial Cell,Urine Occasional #/hpf (0-5); WBC,Urine Occasional #/hpf (0-3)
[2023-10-13 18:09] LABS: Neisseria gonorrhoeae, NAA Negative (Negative)
== END 2023-10-10 11:50 | disposition home or self-care (01) ==
PROVIDERS: Emergency Provider Emergency Medicine
DX: R10.31 Right lower quadrant pain (principal); R30.0 Dysuria; M54.59 Other low back pain; F17.210 Nicotine dependence, cigarettes, uncomplicated; W55.32XA Struck by other hoof stock, initial encounter
CPT/HCPCS: 80053; 81001; 85025; 87491; 87591; 96361; 96374; 99284; J1885; J7120

== ENCOUNTER 2023-10-29 15:19 | Emergency (ER) | payer MEDICAID, SELFPAY ==
[2023-10-29 15:45] VITALS: BP 126/60; PULSE 60; RESP 20; TEMP 36.7; O2SAT 97; BMI 21.7
[2023-10-29 15:58] LABS: UTC Strep Screen (Rapid) Negative (Negative)
--- NOTE | 2023-10-29 16:06 | ED_ITS ---
Discharge Plan Disposition Patient Disposition: Home, Self-Care Condition: Good Prescriptions Prescriptions: New vektmjyuxxajngd-qsjaupzqa-WT [Bromfed DM] 2-30-10 mg/5 mL Syrup 5 ml PO Q6H PRN (Reason: Cough) Qty: 240 0RF amoxicillin-pot clavulanate 875-125 mg Tablet 1 tab PO Q12H Qty: 20 0RF No Action buprenorphine-naloxone [Suboxone] 4-1 mg film 1 film buccal Q24H Rx Instructions: place 1 strip/tab under (each) side of tongue Referrals Follow up/Referrals: Provider,Referral, MD [Primary Care Provider] - See instructions Activity Restrictions/Add. Instructions Additional Instructions/Restrictions: Drink plenty of fluids. Take tylenol or ibuprofen for pain or fever. Take the medications as directed. Follow up with your regular doctor. GO TO THE ER FOR ANY WORSENING SYMPTOMS Clinical Impressions Clinical Impression: Pharyngitis, Acute viral syndrome Instructions Patient Instructions: Sore Throat, DI for Pharyngitis/Tonsillopharyngitis -- Adult Discharge ED Provider: Cresencio Leary [facility] General Stated complaint: sore throat Mode of Arrival: Ambulatory Source of Information: Patient Limitations: No Limitations Time Seen by Provider: 10/29/23 16:06 Description of Symptoms (Recalled from Triage Doc. by RN): PATIENT C/O SORE THROAT WITH KNOT UNDER LEFT JAW X 4-5 DAYS HEENT Symptoms (Recalled from RN notes): No Resp Symptoms (Recalled from RN notes): No Skin Symptoms (Recalled from RN notes): No MS Symptoms (Recalled from RN notes): No Functional Status (Recalled from RN notes): WNL Related Data Home Medications Medication Instructions Recorded Confirmed buprenorphine 4 mg-naloxone 1 mg 1 film buccal Q24H 06/20/22 10/29/23 sublingual film (Suboxone) Previous Rx's Medication Instructions Recorded amoxicillin 875 mg-potassium 1 tab PO Q12H #20 tabs 10/29/23 clavulanate 125 mg tablet ntrwzxjtuambepa-jhasfcvlaaykudn-UD 5 ml PO Q6H PRN Cough #240 mL 10/29/23 2 mg-30 mg-10 mg/5 mL oral syrup (Bromfed DM) Allergies Allergy/AdvReac Type Severity Reaction Status Date / Time methylphenidate Allergy Verified 06/21/22 12:19 [From Ritalin] Worker's Comp Is this a Worker's Comp case?: No [facility] Disclaimer: The information contained in this section may have been updated after the patient was seen, as this information can be updated by other users. Medical History (Updated 10/29/23 @ 16:27 by Cresencio Leary APRN) Migraine Surgical History (Updated 10/29/23 @ 15:53 by Belkys Peraza RN) Hx of hernia repair History of tonsillectomy Social History Smoking Status: Current every day smoker alcohol intake: never substance use type: former substance user current occupational status: employed Travel in the last 8 weeks: None ROS Obtained: Yes All systems reviewed & no additional complaints except as documented Constitutional Constitutional: Reports chills and Reports fever(s) Eyes Eyes: Denies eye discharge ENT Ears, Nose, Mouth, and Throat: Reports as per HPI Cardiovascular Cardiovascular: Denies chest pain Respiratory Respiratory: Denies chest congestion and Reports cough Gastrointestinal Gastrointestingal: Reports nausea; Denies abdominal pain, constipation, cramping, diarrhea or vomiting Musculoskeletal Musculoskeletal: Denies arthralgias Integumentary/Breasts Skin/Breast: Denies rash Neurologic Neurologic: Denies paresthesias Physical Exam General General appearance: alert and in no apparent distress Head Head exam: atraumatic, normocephalic and normal inspection Eye Eye exam: Present normal appearance, PERRL and EOMI ENT ENT exam: Present mucous membranes moist and normal external ear exam Expanded ENT Exam TM/Canal exam: Bilateral TM: erythema and bulging Nose exam: Absent sinus tenderness Mouth exam: Present normal external inspection; Absent drooling Teeth exam: Present normal inspection Throat exam: Present tonsillar erythema, tonsillomegaly and tonsillar exudate Neck Neck exam: Present normal inspection, full ROM and trachea midline; Absent tenderness, meningismus or lymphadenopathy Chest Chest inspection: Present normal inspection and symmetric chest wall rise; Absent tenderness Respiratory Respiratory exam: Present normal lung sounds bilaterally; Absent respiratory distress, wheezes or stridor Cardiovascular Cardiovascular exam: Present regular rate and normal rhythm; Absent systolic murmur or diastolic murmur Abdominal Exam Abdominal exam: Present soft and normal bowel sounds; Absent distention, tenderness, guarding, rebound or rigidity Extremities Exam Extremities exam: Present normal inspection and normal capillary refill; Absent calf tenderness Back Exam Back exam: Present normal inspection and full ROM; Absent tenderness, CVA tenderness (R) or CVA tenderness (L) Neurological Exam Neurological exam: Present alert, oriented X3 and CN II-XII intact Psychiatric Psychiatric exam: Present normal affect and normal mood Skin Skin exam: Present warm, dry, intact and normal color Medical Decision Making Medical Records Medical records reviewed: No I reviewed the patient's medical records. Abdelrahman Inquiry Pt receiving controlled substance: No Vital Signs: 10/29/23 15:45 Temperature 98.0 F Temperature Source Oral Pulse Rate [Left Brachial] 60 Respiratory Rate 20 Blood Pressure [Left Arm] 126/60 Blood Pressure Mean [Left Arm] 82 Blood Pressure Source [Left Arm] Automatic Cuff Blood Pressure Position [Left Arm] Sitting 02 Sat by Pulse Oximetry 97 Oxygen Delivery Method Room Air Lab Data Lab results reviewed: Yes I reviewed the patient's lab results. Lab Results 10/29/23 15:53: Strep Scn Rapid Clinic Negative Orders (Tests/Meds): ORDERS Category Date Time Status Strep Screen Confirmation Stat Micro 10/29/23 15:53 Received
[2023-10-29 16:28] VITALS: BP 126/60; PULSE 60; RESP 20; TEMP 36.7; O2SAT 97
== END 2023-10-29 16:34 | disposition home or self-care (01) ==
PROVIDERS: Emergency Provider Nurse Practitioner Family
DX: J02.9 Acute pharyngitis, unspecified (principal)
CPT/HCPCS: 87635; 87880; 99212; 99214; G0463

== ENCOUNTER 2024-01-01 11:08 | Emergency (ER) | payer MEDICAID, SELFPAY ==
[2024-01-01 11:09] VITALS: BP 152/78; PULSE 61; RESP 16; TEMP 36.7; O2SAT 98; BMI 23.7
--- NOTE | 2024-01-01 11:10 | HMH.EDGENADL ---
Discharge Plan Disposition Patient Disposition: Home, Self-Care Condition: Good Prescriptions Prescriptions: New omeprazole 20 mg capsule,delayed release(DR/EC) 20 mg PO DAILY 14 Days Qty: 14 0RF ondansetron 4 mg tablet,disintegrating 4 mg PO Q8H PRN (Reason: nausea and vomiting) 5 Days Qty: 14 0RF Probiotic 3 billion cell capsule 3,000 mmu cells PO DAILY 30 Days Qty: 30 0RF Rx Instructions: administer with a meal No Action buprenorphine-naloxone [Suboxone] 4-1 mg film 1 film buccal Q24H Rx Instructions: place 1 strip/tab under (each) side of tongue vitnwkaojthikfr-twhisotmk-EM [Bromfed DM] 2-30-10 mg/5 mL Syrup 5 ml PO Q6H PRN (Reason: Cough) Qty: 240 0RF amoxicillin-pot clavulanate 875-125 mg Tablet 1 tab PO Q12H Qty: 20 0RF Referrals Follow up/Referrals: Provider,Referral, MD [Primary Care Provider] - See instructions Activity Restrictions/Add. Instructions Additional Instructions/Restrictions: As we discussed, given that your symptoms have improved with nausea medication, as well as reassuring labs and physical exam, you are stable for discharge at this time. I have prescribed nausea medication, a medication to help with stomach irritation, and a probiotic. Please return with any new or worsening symptoms. Clinical Impressions Clinical Impression: Nausea & vomiting Stand Alone Forms Stand Alone Forms: Work/School Release Instructions Patient Instructions: DI for Diarrhea and Traveler's Diarrhea -- Adult, DI for Diarrhea and Traveler's Diarrhea -- Child, DI for Nausea -- Adult, DI for Nausea -- Child Print Language Print Language: Occitan Discharge ED Provider: Magen Qureshi General Adult HPI General Chief complaint: Nausea/Vomiting/Diarrhea Stated complaint: vomitting after eating Time Seen by Provider: 01/01/24 11:10 History of Present Illness HPI narrative: The patient presents with a chief complaint of vomiting every time he eats, which started about a week ago. He reports being able to keep some liquids down but experiences issues with any type of meal. He denies having any fevers or difficulty urinating. He has not noticed any blood in his vomit or bowel movements and denies any significant abdominal pain. Bowel movements have been regular, and the patient does not feel constipated. The patient mentions a history of being hit by a cow in the hip area approximately a week ago, which knocked him down. He is unsure if this incident is related to his current symptoms, as he does not recall any abdominal pain at the time of the injury. The patient has no known medical conditions and takes no daily medications. The patient reports that the last time he vomited was around 6 AM this morning. He denies being around anyone sick or with similar symptoms. The vomiting has been occurring every time he eats and has not been getting better. The patient confirms he can keep some liquids down if he doesn't need them. He had his last bowel movement earlier today. Please note that above description of symptoms, in this electronic medical record under categorization of recalled from ER triage doctor by RN are reflective of an initial nursing assessment, however, is not reflective of my full history and physical exam that was personally taken and clarified. Consequentially, this preceding description of symptoms, which may include the patient's categorized chief complaint in the EMR, do not reflect my personal clinical impression, and the ultimate description of history of present illness and patient stated complaints should be deferred to this section of the note. Unless stated otherwise or congruent with this section of the note, additional signs, symptoms, or incongruence should be interpreted as inaccurate with my clinical impression. Related Data Home Medications ?Medication ?Instructions ?Recorded ?Confirmed buprenorphine 4 mg-naloxone 1 mg 1 film buccal Q24H 06/20/22 10/29/23 sublingual film (Suboxone) Previous Rx's ?Medication ?Instructions ?Recorded amoxicillin 875 mg-potassium 1 tab PO Q12H #20 tabs 10/29/23 clavulanate 125 mg tablet eadfmotkagkdbun-vfsbzgfoeonucvd-VQ 5 ml PO Q6H PRN Cough #240 mL 10/29/23 2 mg-30 mg-10 mg/5 mL oral syrup (Bromfed DM) lactobacillus combination no.4 3 3,000 mmu cells PO DAILY 30 days 01/01/24 billion cell capsule (Probiotic) #30 caps omeprazole 20 mg capsule,delayed 20 mg PO DAILY 14 days #14 caps 01/01/24 release ondansetron 4 mg disintegrating 4 mg PO Q8H PRN nausea and 01/01/24 tablet vomiting 5 days #14 tabs Allergies Allergy/AdvReac Type Severity Reaction Status Date / Time methylphenidate Allergy Verified 06/21/22 12:19 [From Ritalin] [facility] Disclaimer: The information contained in this section may have been updated after the patient was seen, as this information can be updated by other users. Medical History (Updated 01/01/24 @ 13:10 by Magen Qureshi MD) Migraine Surgical History (Updated 10/29/23 @ 15:53 by Belkys Peraza RN) Hx of hernia repair History of tonsillectomy Social History Smoking Status: Current every day smoker alcohol intake: never substance use type: former substance user current occupational status: employed Travel in the last 8 weeks: None ROS Obtained: Yes other As per HPI Physical Exam General General appearance: alert and in no apparent distress Head Head exam: atraumatic and normocephalic Eye Eye exam: Present normal appearance Neck Neck exam: Present normal inspection Chest Chest inspection: Present normal inspection and symmetric chest wall rise Respiratory Respiratory exam: Present normal lung sounds bilaterally; Absent respiratory distress Cardiovascular Cardiovascular exam: Present regular rate and normal rhythm Abdominal Exam Abdominal exam: Present soft; Absent tenderness, guarding or rebound Neurological Exam Neurological exam: Present alert and oriented X3 Psychiatric Psychiatric exam: Present normal affect and normal mood Skin Skin exam: Present warm and dry Medical Decision Making Medical Records Medical records reviewed: Yes I reviewed the patient's medical records. Screening: Per USPSTF and CDC recommendations, given the prevalence of disease in our region, it is our hospital?s policy to screen for HIV and viral Hepatitis for all patients aged 18 and over and those with ongoing risk factors. Abdelrahman Inquiry Pt receiving controlled substance: No Vital Signs: 01/01/24 11:09 01/01/24 13:20 Temperature 98.0 F 98.1 F Temperature Source Oral Oral Pulse Rate 81 Pulse Rate [Right] 61 Respiratory Rate 16 16 Blood Pressure 141/67 H Blood Pressure [Right Arm] 152/78 H Blood Pressure Mean [Right Arm] 102 02 Sat by Pulse Oximetry 98 Oxygen Delivery Method Room Air Lab Data Lab Results 01/01/24 11:17: WBC 10.3, RBC 5.34, Hgb 16.0, Hct 48.8, MCV 91.4, MCH 29.9, MCHC 32.8, RDW 13.0, Plt Count 206, MPV 9.1, Neut % (Auto) 65.6, Lymph % (Auto) 24.3, [place] % (Auto) 4.0, Eos % (Auto) 5.0, Baso % (Auto) 1.0, Neut # (Auto) 6.7, Lymph # (Auto) 2.5, [place] # (Auto) 0.4, Eos # (Auto) 0.5 H, Baso # (Auto) 0.1, Sodium 138, Potassium 4.1, Chloride 107, Carbon Dioxide 27, Anion Gap 8.1, BUN 14, Creatinine 0.70, Estimated Creat Clear 165, Estimated GFR 126, Est GFR ( Amer) 153, Glucose 132 H, Calcium 9.5, Total Bilirubin 0.6, AST 39, ALT 49, Alkaline Phosphatase 81, Total Protein 7.3, Albumin 4.6, Globulin 2.7, Albumin/Globulin Ratio 1.7, Lipase 36, HIV 1&2 Antibody Rapid Nonreactive 01/01/24 11:17 01/01/24 11:17 Orders (Tests/Meds): ED MEDICATIONS Discontinued Medications Generic Name Dose Route Start Last Admin Trade Name Freq PRN Reason Stop Dose Admin Belladonna Alkaloids 60 ml 01/01/24 11:10 01/01/24 11:21 Belladonna Alkaloids 60 Ml Ml PO 01/01/24 11:11 60 ml ONCE ONE Administration Lactated Ringer's 1,000 mls @ 999 mls/hr 01/01/24 11:10 01/01/24 11:21 Lactated Ringer's 1000 Ml Bag IV 01/01/24 12:10 999 mls/hr .Q1H1M ONE Administration Ketorolac Tromethamine 15 mg 01/01/24 11:10 01/01/24 11:22 Ketorolac 30mg/Ml Vial IV 01/01/24 11:11 15 mg ONCE ONE Administration Ondansetron HCl 4 mg 01/01/24 11:10 01/01/24 11:22 Ondansetron 4mg/2ml Vial IV 01/01/24 11:11 4 mg ONCE ONE Administration ORDERS Category Date Time Status CBC w/Auto Diff [Complete Blood Count Auto Diff] Stat Lab 01/01/24 11:17 Completed CMP [Comprehensive Metabolic Panel] Stat Lab 01/01/24 11:17 Completed HIV (1&2) Antibody Rapid Stat Lab 01/01/24 11:17 Completed Hep C Ab with Reflex to RNA Stat Lab 01/01/24 11:17 Received Lipase Stat Lab 01/01/24 11:17 Completed Medical Decision Narrative: Patient with history and exam per above presenting for evaluation of nausea, vomiting Diagnoses considered include pancreatitis, PUD, low clinical suspicion and insufficient clinical evidence to warrant further evaluation beyond history and physical exam at this time for acute surgical pathology. ED workup and treatment included: ED MEDICATIONS Discontinued Medications Generic Name Dose Route Start Last Admin Trade Name Freq PRN Reason Stop Dose Admin Belladonna Alkaloids 60 ml 01/01/24 11:10 01/01/24 11:21 Belladonna Alkaloids 60 Ml Ml PO 01/01/24 11:11 60 ml ONCE ONE Administration Lactated Ringer's 1,000 mls @ 999 mls/hr 01/01/24 11:10 01/01/24 11:21 Lactated Ringer's 1000 Ml Bag IV 01/01/24 12:10 999 mls/hr .Q1H1M ONE Administration Ketorolac Tromethamine 15 mg 01/01/24 11:10 01/01/24 11:22 Ketorolac 30mg/Ml Vial IV 01/01/24 11:11 15 mg ONCE ONE Administration Ondansetron HCl 4 mg 01/01/24 11:10 01/01/24 11:22 Ondansetron 4mg/2ml Vial IV 01/01/24 11:11 4 mg ONCE ONE Administration ORDERS Category Date Time Status CBC w/Auto Diff [Complete Blood Count Auto Diff] Stat Lab 01/01/24 11:17 Completed CMP [Comprehensive Metabolic Panel] Stat Lab 01/01/24 11:17 Completed HIV (1&2) Antibody Rapid Stat Lab 01/01/24 11:17 Completed Hep C Ab with Reflex to RNA Stat Lab 01/01/24 11:17 Received Lipase Stat Lab 01/01/24 11:17 Completed Labs were independently interpreted by me, significant for no acute findings My clinical impression at this time is most consistent with likely enteritis, patient reports improvement of symptoms upon repeat evaluation, was able to tolerate p.o. solids without difficulty. He is comfortable with discharge at this time. I discussed my clinical impression with patient and answered all questions. At this time, the evidence for any other entities in the differential is insufficient to warrant any further testing or ED observation. This was explained to the patient. The patient was advised that persistent or worsening symptoms require further evaluation. Critical Care Critical Care Time Critical Care Time: No
[2024-01-01] MEDS: LACTATED RINGERS 1000ML 1,000 ML 999 ML IV (11:21)
[2024-01-01] MEDS: BELLADONNA ALKALOIDS 60 ML ML PO (11:21)
[2024-01-01] MEDS: ONDANSETRON 4MG/2ML VIAL 4 MG IV (11:22)
[2024-01-01] MEDS: KETOROLAC 30MG/ML VIAL 15 MG IV (11:22)
[2024-01-01 11:30] LABS: Basophils # 0.1 K/mm3 (0-0.2); Eosinophils # 0.5 K/mm3 (0.0-0.4); Hematocrit 48.8 % (42.0-52.0); Lymphocytes # 2.5 K/mm3 (0.7-4.5); Lymphocytes % 24.3 % (10-50); Mean Corpuscular HGB Conc 32.8 g/dL (31.8-35.4); Mean Corpuscular Hemoglobin 29.9 pg (27.0-31.2); Mean Corpuscular Volume 91.4 fl (80-94); Mean Platelet Volume 9.1 fl (7.4-10.4); Monocytes # 0.4 K/mm3 (0.1-1.0); Neutrophils # 6.7 K/mm3 (1.8-7.8); Neutrophils % 65.6 % (37.0-80.0); Platelet Count 206 K/mm3 (142-424); Red Blood Count 5.34 M/mm3 (4.60-6.20); White Blood Count 10.3 K/mm3 (4.8-10.8)
[2024-01-01 11:38] LABS: Albumin Level 4.6 g/dl (3.5-5.0); Chloride 107 mmol/L (98-107)
[2024-01-01 11:39] LABS: Potassium 4.1 mmoL/L (3.5-5.1); Sodium 138 mmol/L (136-145)
[2024-01-01 11:41] LABS: Alanine Aminotransferase 49 U/L (12-78); Aspartate Amino Transferase 39 U/L (17-59); Blood Urea Nitrogen 14 mg/dl (9-20); Creatinine Clearance Estimated 165 mL/min (50-200); Estimated Glomerular Filt Rate 126 ml/min (>60); GFR (African American) 153 ML/MIN (>60)
[2024-01-01 11:42] LABS: Albumin/Globulin Ratio 1.7 (1.1-1.8); Alkaline Phosphatase 81 U/L (38-126); Anion Gap 8.1 mEq/L (5-15); Bilirubin,Total 0.6 mg/dl (0.2-1.3); Calcium 9.5 mg/dl (8.4-10.2); Carbon Dioxide 27 mmol/L (22.0-30.0); Globulin 2.7 g/dL (1.3-3.2); Glucose 132 mg/dl (74-100); Lipase 36 U/L (23-300); Total Protein,Serum 7.3 g/dl (6.3-8.2)
--- NOTE | 2024-01-01 12:00 | PC.NURSE ---
pt given crackers and peanut butter, and water
[2024-01-01 12:40] LABS: HIV (1&2) Antibody Rapid NONREACTIVE (NONREACTIVE)
--- NOTE | 2024-01-01 13:04 | PC.NURSE ---
DR NO AT BEDSIDE TO REEVALUATE PT
[2024-01-01 13:20] VITALS: BP 141/67; PULSE 81; RESP 16; TEMP 36.7; O2SAT 97
== END 2024-01-01 13:21 | disposition home or self-care (01) ==
PROVIDERS: Emergency Provider Emergency Medicine
DX: R11.2 Nausea with vomiting, unspecified (principal)
CPT/HCPCS: 80053; 83690; 85025; 87389; 96361; 96374; 96375; 99284; J1885; J2405; J7120

== ENCOUNTER 2024-01-19 13:18 | Outpatient (CLI) | payer MEDICAID, SELFPAY | END 2024-01-19 23:59 | disposition home or self-care (01) | LOC: LAB 13:21 | PROVIDERS: PCP Nurse Practitioner; Visit Provider Nurse Practitioner | DX: Z02.9 Encounter for administrative examinations, unspecified (principal) ==

== ENCOUNTER 2024-09-29 15:07 | Emergency (ER) | payer MEDICAID, SELFPAY ==
[2024-09-29] VITALS (11 sets, daily range): BP systolic 119–151; BP diastolic 73–92; PULSE 57–84; RESP 13–20; TEMP 36.6; O2SAT 95–98; BMI 23.7
--- NOTE | 2024-09-29 15:12 | ECG_ITS ---
APPROVED REPORT Exam: Resting ECG HR:79 bpm ECG Measurements Heart Rate 79 AXES MO 132 P 9 QRSd 93 QRS 80 QT 346 T -3 QTc 380 Conclusion Sinus rhythm T wave inversions in 3 and aVF without reciprocal elevation Electronically signed by : DEMETRIUS LOPEZ, 10/05/2024 07:44:47
--- OUTSIDE RECORDS SUMMARY | 2024-09-29 15:24 | XMS_ITS | Clinical Summary ---
Author Organization [facility] Address [address] [phone] Phone Care Team Providers Care Casing Fluid Tender Name Role Phone Yaritza Alcantar APRN Primary Care Physician + Conditions or Problems Problem Name Problem Code Onset Date Status Entry Date Provider Comment Standard Description Annotate Body mass index (BMI) 20.0-20.9; adult Z68.20 (ICD-10-CM) Active Yaritza Alcantar APRN Body mass index [BMI] 20.0-20.9, adult Abrasion, finger, infected [id number] (SNOMED CT) Active Yaritza Alcantar APRN Abrasion and/or friction burn of finger, infected Finger pain, left [id number] (SNOMED CT) Active Yaritza Alcantar APRN Pain in finger Medications Medication Instructions Start Date Stop Date Generic Name NDC Provider MUPIROCIN 2 % OINT APPLY TO AFFECTED AREA 2 TIMES DAILY 9 MUPIROCIN [id number] Yaritza Alcantar APRN KEFLEX 500 MG ORAL CAPSULE TAKE 1 CAPSULE BY MOUTH 3 TIMES A DAY FOR 10 DAYS 9 CEPHALEXIN [id number] Yaritza Alcantar APRN SUBOXONE 8-2 MG FILM 9 BUPRENORPHINE HCL-NALOXONE HCL [id number] Yaritza Alcantar APRN Medications Administered No information available. Allergies, Adverse Reactions, Alerts Observed no known allergies at Results No information available. Plan of Care No information available. Procedures Code Procedure Name Date Entry Date [facility]-[id number] Medication Reconciliation CPT-3074F Most recent systolic blood pressure <130 mm Hg CPT-3079F Most recent diastoli c blood pressure 80-89 mm Hg Vital Signs Date Name Value Unit Description BMI (Body Mass Index) 20.81 kg/m2 Bod y Mass Index (Ratio) Body Temperature 98 [degF] temperat ure E&M Body Temperature 36.67 Radha temperat ure in centigrade E&M BP Diastolic 86 mm[Hg] blood pressu re, diastolic BP Systolic 127 mm[Hg] blood pressur e, systolic BSA (Body Surface Area) 1.96 b solo surface area Heart Rate 82 /min pulse rate Height 74 [in_us] height E&M Height 187.96 cm height in cent imeters E&M Weight Measured 161.5 [lb_av] weight E& M Weight Measured 161.5 [lb_av] weight E& M Weight Measured 73.41 kg weight in kilograms E&M Immunizations No information available. Advance Directives No information available.
--- NOTE | 2024-09-29 15:26 | CT_ITS ---
FINAL REPORT TECHNIQUE: Axial CT images were performed through the head. Coronal reformatted images were submitted. This study was performed with techniques to keep radiation doses as low as reasonably achievable (ALARA). Individualized dose reduction techniques using automated exposure control or adjustment of mA and/or kV according to the patient's size were employed. CLINICAL HISTORY: vision change FINDINGS: There is prominent differentiation between the garcia matter and and white matter bilaterally, could represent diffuse deep white matter abnormality. The ventricles are normal in size. There is no evidence of hemorrhage. There is no mass or edema identified. There is no abnormal extra-axial fluid seen. The sinuses are well aerated. IMPRESSION: Prominent decreased attenuation throughout deep white matter. Consider MRI to evaluate for underlying white matter abnormality. Reviewed, Interpreted and Dictated by Kyle Santo MD Transcribed by Maryanne Mckinnon Authenticated and [facility]
--- NOTE | 2024-09-29 15:33 | HMH.EDGENADL ---
Discharge Plan Disposition Patient Disposition: Home, Self-Care Prescriptions Prescriptions: No Action buprenorphine-naloxone [Suboxone] 4-1 mg film 1 film buccal Q24H Rx Instructions: place 1 strip/tab under (each) side of tongue omeprazole 20 mg capsule,delayed release(DR/EC) 20 mg PO DAILY 14 Days Qty: 14 0RF ondansetron 4 mg tablet,disintegrating 4 mg PO Q8H PRN (Reason: nausea and vomiting) 5 Days Qty: 14 0RF Probiotic 3 billion cell capsule 3,000 mmu cells PO DAILY 30 Days Qty: 30 0RF Rx Instructions: administer with a meal Referrals Follow up/Referrals: Provider,Referral, MD [Primary Care Provider, Medical] - See instructions Activity Restrictions/Add. Instructions Additional Instructions/Restrictions: Increase fluids. Please follow with your PCP for MRI. Clinical Impressions Clinical Impression: Dizziness, Headache Instructions Patient Instructions: Dizziness, Nonvertigo Print Language Print Language: Mongolian Discharge ED Provider: Mikel David General Adult HPI <Urszula Hill (ED), COMMUNICATIONS CONTROLLER - Last Filed: 09/29/24 17:44> General Chief complaint: Dizziness Stated complaint: Dizziness Time Seen by Provider: 09/29/24 15:19 Mode of Arrival: Ambulatory Source of Information: Patient Description of Symptoms (Recalled from ER Triage Doc. by RN): PT presents to the ED for evaluation of dizziness. Pt has hx of migraines. PT stated he has dark spots in both eyes. PT stated dizziness started this am. Denies improvement with lying down. Denies hypoglycemia. Denies taking pain meds. History of Present Illness HPI narrative: 39-year-old male presents to the ED today for complaint of dizziness that started today. States that he can be sitting there and be dizzy but mainly happens when he stands up. Patient complains of splotchy vision. He has no nausea, vomiting or diarrhea. No recent illness. Patient tells me that he does have headaches about once a month. He takes Tylenol for that. He says typically that does not help. He has no other complaints today. He does not know what his blood pressure normally runs. Related Data Home Medications ?Medication ?Instructions ?Recorded ?Confirmed buprenorphine 4 mg-naloxone 1 mg 1 film buccal Q24H 06/20/22 04/27/24 sublingual film (Suboxone) Previous Rx's ?Medication ?Instructions ?Recorded lactobacillus combination no.4 3 3,000 mmu cells PO DAILY 30 days 01/01/24 billion cell capsule (Probiotic) #30 caps omeprazole 20 mg capsule,delayed 20 mg PO DAILY 14 days #14 caps 01/01/24 release ondansetron 4 mg disintegrating 4 mg PO Q8H PRN nausea and 01/01/24 tablet vomiting 5 days #14 tabs Allergies Allergy/AdvReac Type Severity Reaction Status Date / Time methylphenidate (From Allergy Hives Verified 04/27/24 13:10 Ritalin) [facility] <Urszula Hill (ED), COMMUNICATIONS CONTROLLER - Last Filed: 09/29/24 17:44> [facility] Disclaimer: The information contained in this section may have been updated after the patient was seen, as this information can be updated by other users. Medical History (Updated 09/29/24 @ 19:37 by Urszula Hill (ED), COMMUNICATIONS CONTROLLER) Migraine Surgical History Hx of hernia repair History of tonsillectomy Family History (Updated 04/27/24 @ 13:08 by Karen Munoz RN) Other No significant family history Social History (Updated 04/27/24 @ 13:09 by Karen Munoz RN) Smoking Status: Current every day smoker alcohol intake: never substance use type: former substance user current occupational status: employed Travel in the last 8 weeks?: None Have you lived/traveled outside US in past 30 days?: No Contact w/someone who lives/traveled outside US past 30 days?: No Exposure to someone with infectious disease in past 14 days?: No Do you have a fever (greater than 100.4 F or 38 C)?: No Have you tested positive for COVID-19?: No Exposed to someone with COVID-19 in past 14 days?: No Do you have a sore throat?: No Do you have a cough?: No Do you have any weakness?: No Do you have any diarrhea?: No Are you experiencing any unusual bleeding?: No Do you have any muscle aches/pain?: No Do you have any abdominal pain?: No Are you experiencing loss of taste or smell?: No Other Medical History Have you received the Flu Vaccine for this season: No Have you received the Pneumonia Vaccine: No <Urszula Hill (ED), COMMUNICATIONS CONTROLLER - Last Filed: 09/29/24 17:44> ROS Obtained: Yes Systems reviewed as appropriate & no additional complaints except as documented Constitutional Constitutional: Reports as per HPI Physical Exam <Urszula Suntonyacharlie (ED), COMMUNICATIONS CONTROLLER - Last Filed: 09/29/24 17:44> General General appearance: alert and in no apparent distress Head Head exam: atraumatic and normocephalic Eye Eye exam: Present PERRL and EOMI ENT ENT exam: Present normal oropharynx and mucous membranes moist Neck Neck exam: Present full ROM and trachea midline Respiratory Respiratory exam: Present normal lung sounds bilaterally Cardiovascular Cardiovascular exam: Present regular rate, normal rhythm, normal heart sounds, +S1 and +S2 Abdominal Exam Abdominal exam: Present soft and normal bowel sounds Extremities Exam Extremities exam: Present normal inspection, full ROM and normal capillary refill Neurological Exam Neurological exam: Present alert, oriented X3 and normal gait Skin Skin exam: Present warm, dry and intact Medical Decision Making <Urszula Suntamanna (ED), COMMUNICATIONS CONTROLLER - Last Filed: 09/29/24 17:44> Medical Records Screening: Per USPSTF and CDC recommendations, given the prevalence of disease in our region, it is our hospital?s policy to screen for HIV and viral Hepatitis for all patients aged 18 and over and those with ongoing risk factors. Abdelrahman Inquiry Pt receiving controlled substance: No Abdelrahman was queried for this patient: No Vital Signs: 09/29/24 15:14 09/29/24 15:15 09/29/24 15:30 Temperature 97.8 F Temperature Source Oral Pulse Rate 84 79 Pulse Rate [Right] 78 Respiratory Rate 19 18 17 Blood Pressure 151/89 H 146/92 H Blood Pressure [Right Arm] 151/89 H Blood Pressure Mean 113 110 Blood Pressure Mean [Right Arm] 109 Blood Pressure Position 02 Sat by Pulse Oximetry 96 98 97 Oxygen Delivery Method Room Air Room Air Room Air 09/29/24 16:01 09/29/24 16:31 09/29/24 17:00 Temperature Temperature Source Pulse Rate 67 66 64 Pulse Rate [Right] Respiratory Rate 16 20 16 Blood Pressure 131/77 119/81 122/73 Blood Pressure [Right Arm] Blood Pressure Mean 95 91 84 Blood Pressure Mean [Right Arm] Blood Pressure Position 02 Sat by Pulse Oximetry 96 96 95 Oxygen Delivery Method Room Air 09/29/24 17:30 09/29/24 18:00 09/29/24 18:30 Temperature Temperature Source Pulse Rate 62 57 L 60 Pulse Rate [Right] Respiratory Rate 18 17 15 Blood Pressure 124/81 124/80 128/84 Blood Pressure [Right Arm] Blood Pressure Mean 95 91 89 Blood Pressure Mean [Right Arm] Blood Pressure Position 02 Sat by Pulse Oximetry 96 97 96 Oxygen Delivery Method Room Air Room Air 09/29/24 18:45 09/29/24 19:39 Temperature 98 F Temperature Source Oral Pulse Rate 65 58 L Pulse Rate [Right] Respiratory Rate 13 14 Blood Pressure 128/84 135/81 Blood Pressure [Right Arm] Blood Pressure Mean Blood Pressure Mean [Right Arm] Blood Pressure Position Sitting 02 Sat by Pulse Oximetry 96 Oxygen Delivery Method Room Air Lab Data Lab Results 09/29/24 15:33: WBC 14.7 H, RBC 5.19, Hgb 15.6, Hct 44.7, MCV 86.1, MCH 30.1, MCHC 34.9, RDW 11.7, Plt Count 194, MPV 10.7 H, Neut % (Auto) 77.0, Lymph % (Auto) 16.4, Ellis % (Auto) 4.8, Eos % (Auto) 1.0, Baso % (Auto) 0.5, Neut # (Auto) 11.4 H, Lymph # (Auto) 2.4, Ellis # (Auto) 0.7, Eos # (Auto) 0.2, Baso # (Auto) 0.1, Sodium 139, Potassium 4.1, Chloride 106, Carbon Dioxide 27, Anion Gap 10.1, BUN 18, Creatinine 0.80, Estimated Creat Clear 143, Estimated GFR 108, Est GFR ( Amer) 130, Glucose 118 H, Calcium 9.8, Magnesium 1.8, Total Bilirubin 0.6, AST 60 H, ALT 67, Alkaline Phosphatase 86, Troponin I < 0.01, Total Protein 7.5, Albumin 4.6, Globulin 2.9, Albumin/Globulin Ratio 1.6 09/29/24 15:36: SARS-CoV-2 (PCR) Not detected, Influenza A Untype (PCR) Not detected, Influenza Type B (PCR) Not detected 09/29/24 18:33: Troponin I < 0.01 09/29/24 15:33 09/29/24 15:33 Orders (Tests/Meds): ED MEDICATIONS Discontinued Medications Generic Name Dose Route Start Last Admin Trade Name Steven PRCricket Reason Stop Dose Admin Acetaminophen 1,000 mg 09/29/24 15:24 09/29/24 15:37 Acetaminophen 1,000mg/100ml Vial IV 09/29/24 15:25 1,000 mg ONCE ONE Administration Sodium Chloride 1,000 mls @ 999 mls/hr 09/29/24 15:24 09/29/24 15:37 Sod Chlor 0.9% 1000ml Bag IV 09/29/24 16:24 999 mls/hr .Q1H1M ONE Administration Meclizine HCl 25 mg 09/29/24 15:24 09/29/24 15:37 Meclizine 25mg Tablet PO 09/29/24 15:25 25 mg ONCE ONE Administration ORDERS Category Date Time Status CT head/brain wo con Stat Cat Scan 09/29/24 15:26 Completed CBC [Complete Blood Count Auto Diff] Stat Lab 09/29/24 15:33 Completed Comprehensive Metabolic Panel Stat Lab 09/29/24 15:33 Completed Magnesium Stat Lab 09/29/24 15:33 Completed Rapid PCR Covid and Flu A/B Stat Lab 09/29/24 15:36 Completed Trop I [Troponin I] Stat Lab 09/29/24 15:33 Completed Troponin I Q3H Lab 09/29/24 18:33 Completed Medical Decision Narrative: patient is a 39-year-old male presenting to the emergency department for evaluation of dizziness and headache. Patient is hemodynamically stable and nontoxic-appearing upon arrival, afebrile. Differential diagnosis includes viral illness, migraine, visual changes, vertigo, among others. Workup will be conducted with hematologic labs, specific imaging. Initial inventions include crystalloid bolus, analgesics. Initial workup reviewed by me white count was 14.7 I do believe this is likely viral in nature. Patient has normal electrolytes and normal troponin. We are waiting on the second troponin currently. [Formal imaging read remarkable for please see radiology read for the official read. It does show some white matter changes. Patient and I discussed this and we discussed that he needs an MRI outpatient. Upon repeat evaluation patient's pain is improved, appears better perfused. Patient feels better and agrees to see his PCP outpatient. He is unsure what her name is he is only seen her 1 time. He says she is in the office on [facility]. Dr. David and I discussed him following up outpatient on the CT scan to do an MRI. Patient's dizziness has resolved with IV fluids and IV Tylenol. His headache is gone. Patient is safe for discharge home once troponin is negative. <Mikel David MD - Last Filed: 09/29/24 20:55> Vital Signs: 09/29/24 15:14 09/29/24 15:15 09/29/24 15:30 Temperature 97.8 F Temperature Source Oral Pulse Rate 84 79 Pulse Rate [Right] 78 Respiratory Rate 19 18 17 Blood Pressure 151/89 H 146/92 H Blood Pressure [Right Arm] 151/89 H Blood Pressure Mean 113 110 Blood Pressure Mean [Right Arm] 109 Blood Pressure Position 02 Sat by Pulse Oximetry 96 98 97 Oxygen Delivery Method Room Air Room Air Room Air 09/29/24 16:01 09/29/24 16:31 09/29/24 17:00 Temperature Temperature Source Pulse Rate 67 66 64 Pulse Rate [Right] Respiratory Rate 16 20 16 Blood Pressure 131/77 119/81 122/73 Blood Pressure [Right Arm] Blood Pressure Mean 95 91 84 Blood Pressure Mean [Right Arm] Blood Pressure Position 02 Sat by Pulse Oximetry 96 96 95 Oxygen Delivery Method Room Air 09/29/24 17:30 09/29/24 18:00 09/29/24 18:30 Temperature Temperature Source Pulse Rate 62 57 L 60 Pulse Rate [Right] Respiratory Rate 18 17 15 Blood Pressure 124/81 124/80 128/84 Blood Pressure [Right Arm] Blood Pressure Mean 95 91 89 Blood Pressure Mean [Right Arm] Blood Pressure Position 02 Sat by Pulse Oximetry 96 97 96 Oxygen Delivery Method Room Air Room Air 09/29/24 18:45 09/29/24 19:39 Temperature 98 F Temperature Source Oral Pulse Rate 65 58 L Pulse Rate [Right] Respiratory Rate 13 14 Blood Pressure 128/84 135/81 Blood Pressure [Right Arm] Blood Pressure Mean Blood Pressure Mean [Right Arm] Blood Pressure Position Sitting 02 Sat by Pulse Oximetry 96 Oxygen Delivery Method Room Air Lab Data Lab Results 09/29/24 15:33: WBC 14.7 H, RBC 5.19, Hgb 15.6, Hct 44.7, MCV 86.1, MCH 30.1, MCHC 34.9, RDW 11.7, Plt Count 194, MPV 10.7 H, Neut % (Auto) 77.0, Lymph % (Auto) 16.4, Ellis % (Auto) 4.8, Eos % (Auto) 1.0, Baso % (Auto) 0.5, Neut # (Auto) 11.4 H, Lymph # (Auto) 2.4, Ellis # (Auto) 0.7, Eos # (Auto) 0.2, Baso # (Auto) 0.1, Sodium 139, Potassium 4.1, Chloride 106, Carbon Dioxide 27, Anion Gap 10.1, BUN 18, Creatinine 0.80, Estimated Creat Clear 143, Estimated GFR 108, Est GFR ( Amer) 130, Glucose 118 H, Calcium 9.8, Magnesium 1.8, Total Bilirubin 0.6, AST 60 H, ALT 67, Alkaline Phosphatase 86, Troponin I < 0.01, Total Protein 7.5, Albumin 4.6, Globulin 2.9, Albumin/Globulin Ratio 1.6 09/29/24 15:36: SARS-CoV-2 (PCR) Not detected, Influenza A Untype (PCR) Not detected, Influenza Type B (PCR) Not detected 09/29/24 18:33: Troponin I < 0.01 Orders (Tests/Meds): ED MEDICATIONS Discontinued Medications Generic Name Dose Route Start Last Admin Trade Name Freq PRN Reason Stop Dose Admin Acetaminophen 1,000 mg 09/29/24 15:24 09/29/24 15:37 Acetaminophen 1,000mg/100ml Vial IV 09/29/24 15:25 1,000 mg ONCE ONE Administration Sodium Chloride 1,000 mls @ 999 mls/hr 09/29/24 15:24 09/29/24 15:37 Sod Chlor 0.9% 1000ml Bag IV 09/29/24 16:24 999 mls/hr .Q1H1M ONE Administration Meclizine HCl 25 mg 09/29/24 15:24 09/29/24 15:37 Meclizine 25mg Tablet PO 09/29/24 15:25 25 mg ONCE ONE Administration ORDERS Category Date Time Status CT head/brain wo con Stat Cat Scan 09/29/24 15:26 Completed CBC [Complete Blood Count Auto Diff] Stat Lab 09/29/24 15:33 Completed Comprehensive Metabolic Panel Stat Lab 09/29/24 15:33 Completed Magnesium Stat Lab 09/29/24 15:33 Completed Rapid PCR Covid and Flu A/B Stat Lab 09/29/24 15:36 Completed Trop I [Troponin I] Stat Lab 09/29/24 15:33 Completed Troponin I Q3H Lab 09/29/24 18:33 Completed ECG Data Tracing #1: I reviewed this ECG and interpreted as documented below: (Sinus rhythm 79 bpm with W[place] 132, QRS 93, QTc 380 patient has incomplete right bundle branch block morphology. T wave inversions in 3 and aVF without reciprocal change) Medical Decision Narrative: patient is a 39-year-old male presenting to the emergency department for evaluation of dizziness and headache. Patient is hemodynamically stable and nontoxic-appearing upon arrival, afebrile. Differential diagnosis includes viral illness, migraine, visual changes, vertigo, among others. Workup will be conducted with hematologic labs, specific imaging. Initial inventions include crystalloid bolus, analgesics. Initial workup reviewed by me white count was 14.7 I do believe this is likely viral in nature. Patient has normal electrolytes and normal troponin. We are waiting on the second troponin currently. [Formal imaging read remarkable for please see radiology read for the official read. It does show some white matter changes. Patient and I discussed this and we discussed that he needs an MRI outpatient. Upon repeat evaluation patient's pain is improved, appears better perfused. Patient feels better and agrees to see his PCP outpatient. He is unsure what her name is he is only seen her 1 time. He says she is in the office on [facility]. Dr. David and I discussed him following up outpatient on the CT scan to do an MRI. Patient's dizziness has resolved with IV fluids and IV Tylenol. His headache is gone. Patient is safe for discharge home once troponin is negative. I was consulted by the GAVINO, and we discussed the complexity of the problems being addressed. I approved the treatment and management plan for this patient's care in the Emergency Department, thus performing a substantive portion of the medical decision making. Mikel David MD Critical Care <Urszula Hill (ED), COMMUNICATIONS CONTROLLER - Last Filed: 09/29/24 17:44> Critical Care Time Critical Care Time: No
[2024-09-29] MEDS: MECLIZINE 25MG TABLET 25 MG PO (15:37)
[2024-09-29] MEDS: ACETAMINOPHEN 1,000MG/100ML VIAL 1000 MG IV (15:37)
[2024-09-29] MEDS: 0.9 % SODIUM CHLORIDE 1000ML 1,000 ML 999 ML IV (15:37)
[2024-09-29 15:40] LABS: Coronavirus 19, PCR Not Detected (NotDetected); Influenza A, PCR Not Detected (NotDetected); Influenza B, PCR Not Detected (NotDetected)
[2024-09-29 15:41] LABS: Basophils # 0.1 K/mm3 (0-0.2); Basophils % 0.5 % (0.1-2.0); Eosinophils # 0.2 Kmm3 (0.0-0.4); Hematocrit 44.7 % (42.0-52.0); Hemoglobin 15.6 g/dL (14.1-18.0); Immature Granulocytes # 0.04 10^3uL; Immature Granulocytes % 0.3 %; Lymphocytes # 2.4 K/mm3 (0.7-4.5); Lymphocytes % 16.4 % (10-50); Mean Corpuscular HGB Conc 34.9 g/dL (31.8-35.4); Mean Corpuscular Hemoglobin 30.1 pg (27.0-31.2); Mean Corpuscular Volume 86.1 fl (80-94); Mean Platelet Volume 10.7 fl (7.4-10.4); Monocytes # 0.7 K/mm3 (0.1-1.0); Monocytes % 4.8 % (1.7-9.3); Neutrophils # 11.4 K/mm3 (1.8-7.8); Nucleated Red Blood Cells # 0 10^3/uL; Nucleated Red Blood Cells % 0 %; Platelet Count 194 K/mm3 (142-424); Red Blood Count 5.19 M/mm3 (4.60-6.20); Red Cell Distribution Width 11.7 % (11.5-17.5); Red Cell Distribution Width-SD 36.7 fL; White Blood Count 14.7 K/mm3 (4.8-10.8)
[2024-09-29 15:52] LABS: Alanine Aminotransferase 67 U/L (12-78); Albumin Level 4.6 g/dl (3.5-5.0); Albumin/Globulin Ratio 1.6 (1.1-1.8); Alkaline Phosphatase 86 U/L (38-126); Anion Gap 10.1 mEq/L (5-15); Aspartate Amino Transferase 60 U/L (17-59); Bilirubin,Total 0.6 mg/dl (0.2-1.3); Blood Urea Nitrogen 18 mg/dl (9-20); Calcium 9.8 mg/dl (8.4-10.2); Carbon Dioxide 27 mmol/L (22.0-30.0); Chloride 106 mmol/L (98-107); Creatinine Clearance Estimated 143 mL/min (50-200); Estimated Glomerular Filt Rate 108 ml/min (>60); GFR (African American) 130 ML/MIN (>60); Globulin 2.9 g/dL (1.3-3.2); Glucose 118 mg/dl (74-100); Magnesium 1.8 mg/dl (1.6-2.3); Potassium 4.1 mmoL/L (3.5-5.1); Sodium 139 mmol/L (136-145); Total Protein,Serum 7.5 g/dl (6.3-8.2)
[2024-09-29 16:07] LABS: Troponin I < 0.01 ng/ml (0.00-0.034)
--- NOTE | 2024-09-29 19:13 | PC.NURSE ---
assumed care of patient at this time. Pt aox4, NAD noted, RR even and non labored, skin pwd. Awaiting repeat trop.
[2024-09-29 19:18] LABS: Troponin I < 0.01 ng/ml (0.00-0.034)
== END 2024-09-29 19:42 | disposition home or self-care (01) ==
PROVIDERS: Nurse Practitioner; Emergency Provider Emergency Medicine
DX: R51.9 Headache, unspecified (principal); R42 Dizziness and giddiness; F17.210 Nicotine dependence, cigarettes, uncomplicated
CPT/HCPCS: 70450; 80053; 83735; 84484; 85025; 87636; 93005; 96361; 96374; 99284; J0131; J7030

== ENCOUNTER 2024-11-02 13:27 | Outpatient (CLI) | payer MEDICAID, SELFPAY ==
--- OUTSIDE RECORDS SUMMARY | 2024-11-02 13:28 | XMS_ITS | Clinical Summary ---
Author Organization [facility] Address [address] [phone] Phone Care Team Providers Care Skein Dyer Name Role Phone Yaritza Alcantar APRN Primary Care Physician + Conditions or Problems Problem Name Problem Code Onset Date Status Entry Date Provider Comment Standard Description Annotate Body mass index (BMI) 20.0-20.9; adult Z68.20 (ICD-10-CM) Active Yaritza Alcantar APRN Body mass index [BMI] 20.0-20.9, adult Abrasion, finger, infected [id number] (SNOMED CT) Active Yaritza Alcantar APRN Abrasion and/or friction burn of finger, infected Finger pain, left [id number] (SNOMED CT) Active Yaritza Alcantar APRN Pain in finger Medications Medication Instructions Start Date Stop Date Generic Name NDC Provider MUPIROCIN 2 % OINT APPLY TO AFFECTED AREA 2 TIMES DAILY 9 MUPIROCIN [id number] Yaritza Alcantar APRN KEFLEX 500 MG ORAL CAPSULE TAKE 1 CAPSULE BY MOUTH 3 TIMES A DAY FOR 10 DAYS 9 CEPHALEXIN [id number] Yaritza Alcantar APRN SUBOXONE 8-2 MG FILM 9 BUPRENORPHINE HCL-NALOXONE HCL [id number] Yaritza Alcantar APRN Medications Administered No information available. Allergies, Adverse Reactions, Alerts Observed no known allergies at Results No information available. Plan of Care No information available. Procedures Code Procedure Name Date Entry Date [facility]-[id number] Medication Reconciliation [id number] Most recent systolic blood [...]
--- NOTE | 2024-11-02 13:36 | XR_ITS ---
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 No fracture is identified. The sinuses are clear. No foreign body is identified. IMPRESSION: No acute process. Reviewed, Interpreted and Dictated by Irineo Reynolds MD Transcribed by Anjelica Tavarez Authenticated and [facility]
== END 2024-11-02 23:59 | disposition home or self-care (01) ==
LOC: RAD 13:27
PROVIDERS: PCP Nurse Practitioner Family; Visit Provider Nurse Practitioner Family
DX: Z04.89 Encounter for examination and observation for other specified reasons (principal)
CPT/HCPCS: 70200